=== PATIENT | male | born 1985 | race Caucasian/White ===

== ENCOUNTER 2023-09-14 12:55 | Outpatient (CLI) | payer OTHER, SELFPAY ==
[2023-09-14 23:34] LABS: Chlamydia DNA Amplified* NOT DETECTED (No Detected); GC DNA Amplified* NOT DETECTED (No Detected)
== END 2023-09-14 12:56 | disposition home or self-care (01) ==
PROVIDERS: PCP Family Medicine; Visit Provider Physician Assistant Medical
DX: Z11.3 Encounter for screening for infections with a predominantly sexual mode of transmission (principal)
CPT/HCPCS: 86592; 86703; 86803; 87491; 87529; 87591